=== PATIENT | male | born 1965 ===

== ENCOUNTER → 2023-05-31 06:30 | Day surgery (SDC) | payer BC, SELFPAY | LOC: GI 06:30 | PROVIDERS: ATTENDING PHYSICIAN Internal Medicine Gastroenterology | DX: Z12.11 Encounter for screening for malignant neoplasm of colon (principal); K64.8 Other hemorrhoids; K57.30 Diverticulosis of large intestine without perforation or abscess without bleeding; Z86.010 Personal history of colon polyps | CPT/HCPCS: G0105 ==

== ENCOUNTER 2023-07-30 06:33 | Day surgery (SDC) | payer BC, SELFPAY ==
[2023-07-24 13:33] VITALS: BMI 27.3
--- NOTE | 2023-07-24 15:56 | PTCARENOTE ---
Abn ECG, Dr. Steinberg notified, no actions requested.
[2023-07-30] VITALS (7 sets, daily range): BP systolic 129–165; BP diastolic 90–103; BMI 27.3
[2023-07-30] MEDS: TYLENOL 1000 MG PO (10:49)
[2023-07-30] MEDS: NORMOSOL-R 1000 IV (10:49)
--- NOTE | 2023-07-30 13:38 | W.IMMPOSTOP ---
Surgical Immed Post Op Note
-
Primary Surgeon: Steven
Assisting: Mick BLAKELY
Pre-op Diagnosis: Bilateral inguinal hernias and incarcerated umbilical hernia
Post-op Diagnosis: Incarcerated umbilical and right inguinal and left inguinal hernias
Procedure Performed: Robot assisted laparoscopic repair of incarcerated right inguinal hernia, incarcerated umbilical hernia and left inguinal hernia
Anesthesia Type: GETA
Specimen / Cultures: None
Estimated Blood Loss: 5cc
Complications: None immediate
Operative Findings: Tiny direct defect (closed with 2-0 vicryl) on the right plus moderate sized indirect defect and large cord lipoma, left indirect hernia with moderate cord lipoma, B/L XL MID 3D max; 1cm umbilical defect with incarcerated fat,
8cm soft mesh (rTAPP)
--- NOTE | 2023-07-30 13:41 | OR.RPT ---
Operative Report
Operative Report
Primary Surgeon: Steven
Assisting: Mick BLAKELY
Pre-op Diagnosis: Bilateral inguinal hernias and incarcerated umbilical hernia
Post-op Diagnosis: Incarcerated umbilical and right inguinal and left inguinal hernias
Procedure Performed: Robot assisted laparoscopic repair of incarcerated right inguinal hernia, incarcerated umbilical hernia and left inguinal hernia
Anesthesia Type: GETA
Specimen / Cultures: None
Estimated Blood Loss: 5cc
Complications: None immediate
Operative Findings: Tiny direct defect (closed with 2-0 vicryl) on the right plus moderate sized indirect defect and large cord lipoma, left indirect hernia with moderate cord lipoma, B/L XL MID 3D max; 1cm umbilical defect with incarcerated fat,
8cm soft mesh (rTAPP)
Date of surgery: 07/30/23
Indications:� This 57M developed symptomatic right inguinal hernia. On imaging and exam a contralateral groin hernia and umbilical hernia were identified as well. He asked that we repair all hernias today. Robot assisted laparoscopic repair was
planned.
Description of procedure:� The patient was taken to the operating room and positioned into supine position. The patient�s abdomen was prepped and draped in standard sterile fashion. A time-out was completed verifying correct patient, procedure,
site, positioning, and implants and special equipment prior to beginning this procedure.� The hernia was manually reduced after induction. A stab incision was made in the left upper quadrant, a Veress needle was inserted and proper position was
confirmed by aspiration and saline drop test. Following this, pneumoperitoneum was created with insufflation of carbon dioxide to 12 mmHg. Then a 8mm robotic trocar was inserted above and to the left of the umbilicus. A laparoscope was inserted and
the area of initial trocar entry and Veress needle placement were both inspected and no injuries were found. Two 8mm trocars were then placed lateral to the rectus sheath under direct visualization.
Both inguinal regions were inspected and the median umbilical ligament, medial umbilical ligament, and lateral umbilical fold were identified. Attention was turned to the right groin. The peritoneum was incised transversely above the defect and a
flap was developed in the caudad direction. Hugo�s ligament was identified ultimately dissected to its junction with the iliac vein and the space of Retzius was developed bluntly.� The dissection was continued inferiorly to the iliopubic tract,
with care taken to avoid injury to the femoral branch of the genitofemoral nerve and the lateral femoral cutaneous nerve. The cord structures were parietalized.
The direct space was inspected and a tiny hernia was identified and reduced by gentle traction. The defect itself was closed with a single vicryl 2-0 interrupted stitch. The femoral space was inspected a defect was not identified.� The indirect
space was inspected and a hernia was identified and reduced by genlte traction. A large cord lipoma was reduced from the canal.
Attention was turned to the left groin and the above process was repeated. An indirect hernia was identified and reduced by gentle traction. The canal was inspected and a moderate cord lipoma was identified and reduced by gentle traction.
Extra large right and left MID 3D max mesh was passed through a trocar. The mesh was placed into the preperitoneal space and moved into position to lay flat and completely cover the direct, indirect, and femoral spaces with overlap at the midline.
The mesh was secured into place using 2-0 vicryl suture to Hugo�s ligament medially and laterally. Care was taken to avoid the inferolateral triangles containing the iliac vessels and genital nerves. The peritoneal flap was closed over the mesh
and secured with 2-0 monocryl stratafix suture in similar positions of safety. A 14g angiocath was used to decompress the preperitoneal space revealing good seal and all mesh in good position without folding or curling.
Attention was turned to the umbilicus. The peritoneum was incised transversely several cm superior to the defect. A flap was developed with blunt and sharp dissection in the caudad direction. The hernia was identified and measured 1cm, incarcerated
fat was reduced and the hernia was closed with 0 PDS stratafix suture. An 8 x 8cm piece of bard soft mesh was passed into the abdomen and placed flush against the abdominal wall centered on the defect. The mesh was secured at all four corners with
2-0 vicryl suture. The flap was closed with 2-0 monocryl suture. A 14g angiocath was used to decompress the preperitoneal space revealing good seal and all mesh in good position without folding or curling. A transversus abdominis plane block was
then performed under laparoscopic vision with marcaine/decadron.
After ensuring adequate hemostasis, the trocars were removed and the pneumoperitoneum allowed to escape. The trocar incisions were closed at the skin level using 4-0 monocryl and topical skin adhesive. All counts were correct and the patient
tolerated the procedure well and was taken to the postanesthesia care unit in stable condition.
The assistance of Cutsler ZORA was required due to the complexity of the procedure. During the procedure he assisted with retraction, resection, and closure of the wound.
--- NOTE | 2023-07-30 14:19 | SUR.PHASEI ---
vss, sleeps if undisturbed, denies c/o - ice to abdomen for comfort.
--- NOTE | 2023-07-30 14:39 | SUR.PHASEI ---
awake and alert, vss, color salomon, slight discomfort but no pain. ice pack to abd and taking ice chips po
== END 2023-07-30 16:20 | disposition home or self-care (01) ==
LOC: SDS 06:33
PROVIDERS: ATTENDING PHYSICIAN Surgery; FAMILY PHYSICIAN Family Medicine
DX: K40.20 Bilateral inguinal hernia, without obstruction or gangrene, not specified as recurrent (principal); K42.0 Umbilical hernia with obstruction, without gangrene
CPT/HCPCS: 49650; 49592; 36415; 93005; C1781

== ENCOUNTER → 2024-11-03 14:02 | Outpatient (REF) | payer OTHER, SELFPAY | LOC: RCS 14:02 | PROVIDERS: ATTENDING PHYSICIAN Internal Medicine Cardiovascular Disease; FAMILY PHYSICIAN Family Medicine | DX: R06.09 Other forms of dyspnea (principal); R42 Dizziness and giddiness | CPT/HCPCS: 93306 ==